=== PATIENT | female | born 1960 | race Caucasian/White ===

== ENCOUNTER 2020-08-09 12:51 | Observation (INO) | payer OTHER ==
[2020-08-09 12:57] VITALS: BMI 26.6
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
[2020-08-09 14:12] LABS: BASO % 1.1 % (0-2.0); EOS % 2.3 % (0-4.5); HEMATOCRIT 41.8 % (32.4-45.2); MCH 30.5 pg (25.7-33.7); MCHC 33.5 g/dl (32.0-36.0); MEAN CELL VOLUME 90.9 fl (80-96); MEAN PLT VOLUME 8.3 fl (7.5-11.1); MONO % 8.6 % (3.8-10.2); PLATELET COUNT 202 K/MM3 (134-434); RDW 13.4 % (11.6-15.6)
[2020-08-09 14:19] LABS: ALBUMIN 4.2 g/dl (3.4-5.0); BILIRUBIN,TOTAL 0.8 mg/dl (0.2-1); CALCIUM 9.1 mg/dl (8.5-10); CREATININE 0.7 mg/dl (0.55-1.3); POTASSIUM 4.2 mmol/L (3.5-5.1)
[2020-08-09] MEDS ORDERED: RABIES IMMUNE GLOBULIN 300 UNITS/1 ML VIAL ONE (15:06)
[2020-08-09] MEDS ORDERED: GlUCAGON HUMAN RECOMBINANT 1 MG/VIAL IVPUSH ONE (15:17)
[2020-08-09] MEDS ORDERED: GLUCAGON 1 MG KIT ONE (15:47)
[2020-08-09] MEDS ORDERED: RABIES VACCINE (PCEC)/PF 2.5 UNIT/VIAL IM ONE (16:26)
[2020-08-09] MEDS ORDERED: CALCIUM GLUCONATE 10% - 1,000 MG/10 ML VIAL IVPB ONE (16:43)
[2020-08-09] MEDS ORDERED: CALCIUM GLUCONATE 10% - 1,000 MG/10 ML VIAL ONE (16:45)
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
[2020-08-09] MEDS ORDERED: ACETAMINOPHEN 500 MG TABLET (FP) PO PRN (22:10)
[2020-08-09] MEDS: ACETAMINOPHEN 500 MG TABLET (FP) PO PRN (22:40)
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
[2020-08-10] MEDS ORDERED: HEPARIN NA (PORCINE) 5,000 UNITS/ML 1ML VIAL SQ SCH (06:00)
[2020-08-10 08:10] LABS: HEMOGLOBIN 13.5 GM/dL (10.7-15.3); MCH 29.5 pg (25.7-33.7); MCHC 32.9 g/dl (32.0-36.0); MEAN CELL VOLUME 89.8 fl (80-96); MEAN PLT VOLUME 8.7 fl (7.5-11.1); PLATELET COUNT 183 K/MM3 (134-434); RBC 4.57 M/mm3 (3.60-5.2); RDW 14.5 % (11.6-15.6); WHITE BLOOD COUNT 4.2 K/mm3 (4.0-10.0)
[2020-08-10 08:17] LABS: CALCIUM 8.8 mg/dL (8.5-10.1); CREATININE 0.8 mg/dL (0.55-1.3); MAGNESIUM 2.2 mg/dL (1.8-2.4)
[2020-08-10] MEDS ORDERED: GABAPENTIN 100 MG CAPSULE PO PRN (08:19)
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
[2020-08-10] MEDS: ENOXAPARIN NA (PORCINE) 40 MG/0.4 ML DISP.SYRIN SQ SCH (09:43)
[2020-08-10] MEDS: CHOLECALCIFEROL (VIT D3) 1,000 UNIT (25 MCG) TABLET PO SCH (09:46)
[2020-08-10] MEDS: ACETAMINOPHEN 500 MG TABLET (FP) PO PRN ×2 (09:46→22:16)
--- NOTE | 2020-08-10 13:20 | EKG ---
Test Reason : Blood Pressure : / mmHG Vent. Rate : 049 BPM Atrial Rate : 049 BPM P-R Int : 156 ms QRS Dur : 084 ms QT Int : 442 ms P-R-T Axes : 043 002 023 degrees QTc Int : 399 ms SINUS BRADYCARDIA OTHERWISE NORMAL ECG WHEN COMPARED WITH ECG OF 09-AUG-2020 14:13, NO SIGNIFICANT CHANGE WAS FOUND Confirmed by MD URENA GREGORY ([id number]) on 08/10/2020 1:20:31 PM [facility] Confirmed By:SIXTO URENA MD
--- NOTE | 2020-08-10 13:31 | EKG ---
Test Reason : Blood Pressure : / mmHG Vent. Rate : 041 BPM Atrial Rate : 041 BPM P-R Int : 156 ms QRS Dur : 090 ms QT Int : 476 ms P-R-T Axes : 068 012 033 degrees QTc Int : 392 ms MARKED SINUS BRADYCARDIA ABNORMAL ECG NO PREVIOUS ECGS AVAILABLE Confirmed by MD AYANNA, SIXTO ([id number]) on 08/10/2020 1:31:06 PM Referred By: SOFYA HADLEY Confirmed By:SIXTO URENA MD
[2020-08-10] MEDS ORDERED: GABAPENTIN 300 MG CAPSULE PO PRN (13:50)
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
--- NOTE | 2020-08-10 15:54 | ECHO ---
Version: 1 Name: KEVIN BRIONES Exam: Adult Echocardiogram Study Date: 08/10/2020, 1:48 PM Age: 60 Years MMode/2D Measurements & Calculations IVSd: 0.40 cm LVIDs: 2.7 cm LVIDd: 4.1 cm LVPWd: 1.02 cm LAV (MOD-bp): 46.0 ml LVOT diam: 1.79 cm Ao root diam: 3.0 cm Doppler Measurements & Calculations MV E max kael: 65.6 cm/sec Med E/e': 13.9 MV A max kael: 65.6 cm/sec Med Peak E' Kael: 4.7 cm/sec MV E/A: 1.00 Lat E/e': 6.6 Lat Peak E' Kael: 10.0 cm/sec Ao max P.8 mmHg Ao V2 max: 129.8 cm/sec TR max kael: 191.5 cm/sec TR max P.7 mmHg Procedure A two-dimensional transthoracic echocardiogram with color flow and Doppler was performed. The patien t was in normal sinus rhythm during the exam. Left Ventricle The left ventricle is normal in size. Left ventricular systolic function is normal. Ejection Fractio n = 65%. The transmitral spectral Doppler flow pattern is suggestive of impaired LV relaxation. Right Ventricle The right ventricle is normal size. The right ventricular systolic function is normal. Atria The left atrial size is normal. Right atrial size is normal. Mitral Valve The mitral valve is normal. There is trace mitral regurgitation. Tricuspid Valve The tricuspid valve is normal. There is mild tricuspid regurgitation. Right ventricular systolic pre ssure is normal. Aortic Valve The aortic valve is normal in structure and function. No aortic regurgitation is present. Pulmonic Valve The pulmonic valve leaflets are thin and pliable; valve motion is normal. There is no pulmonic valvu lar regurgitation. Great Vessels The aortic root is normal size. Mildly dilated ascending aorta. Pericardium/Pleura There is no pericardial effusion. Summary Statements Left ventricular systolic function is normal. The transmitral spectral Doppler flow pattern is suggestive of impaired LV relaxation. The right ventricular systolic function is normal. There is trace mitral regurgitation. There is mild tricuspid regurgitation. Mildly dilated ascending aorta. There is no pericardial effusion. MD Ki Luis 08/10/2020, 3:53 PM Ordering Physician: Mathew Mendoza Referring Physician: MATHEW MENDOZA Performed By: Elena Gonzales
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
[2020-08-10] MEDS ORDERED: POLYETHYLENE GLYCOL 3350 119 GM BTL PO ONE (20:11)
[2020-08-11 06:32] LABS: BASO % 1.2 % (0-2.0); EOS % 2.4 % (0-4.5); HEMATOCRIT 41.1 % (32.4-45.2); HEMOGLOBIN 13.5 GM/dL (10.7-15.3); LYMPH % 33.7 % (8-40); MCH 29.6 pg (25.7-33.7); MCHC 32.9 g/dl (32.0-36.0); MEAN PLT VOLUME 8.3 fl (7.5-11.1); MONO % 8.3 % (3.8-10.2); NEUT % 54.4 % (42.8-82.8); PLATELET COUNT 177 K/MM3 (134-434); RBC 4.56 M/mm3 (3.60-5.2); RDW 14.3 % (11.6-15.6); WHITE BLOOD COUNT 4.7 K/mm3 (4.0-10.0)
[2020-08-11 06:44] LABS: BLOOD UREA NITROGEN 15.7 mg/dL (7-18); CALCIUM 8.5 mg/dL (8.5-10.1); CREATININE 0.8 mg/dL (0.55-1.3)
[2020-08-11] MEDS ORDERED: DOCUSATE SODIUM 100 MG CAPSULE (FP) PO ONE (08:59)
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
[2020-08-11] MEDS: ACETAMINOPHEN 500 MG TABLET (FP) PO PRN (10:03)
[2020-08-11] MEDS: ENOXAPARIN NA (PORCINE) 40 MG/0.4 ML DISP.SYRIN SQ SCH (10:06)
[2020-08-11] MEDS: CHOLECALCIFEROL (VIT D3) 1,000 UNIT (25 MCG) TABLET PO SCH (10:06)
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
[2020-08-11 14:58] VITALS: BP 127/79; PULSE 57; TEMP 97.7
== END 2020-08-11 17:00 | disposition home or self-care (01) ==
LOC: FER 12:51 → J4S 21:00 → UNDOADMOB 21:00 → INTOOBSV 21:00 → J4S 08-10 10:13
PROVIDERS: ADMIT Internal Medicine Endocrinology, Diabetes & Metabolism; ATTEND Internal Medicine
DX: M54.9 Dorsalgia, unspecified (principal); R07.9 Chest pain, unspecified; R00.1 Bradycardia, unspecified; R51 Headache; R91.1 Solitary pulmonary nodule; R55 Syncope and collapse; G51.0 Bell's palsy; M21.612 Bunion of left foot; M21.611 Bunion of right foot; A69.20 Lyme disease, unspecified; Z91.030 Bee allergy status; Z87.828 Personal history of other (healed) physical injury and trauma
CPT/HCPCS: 36415; 70450-TC; 71045-TC-FY; 71275-TC; 74175-TC; 80048; 80053; 83735; 84484; 85025; 85027; 93005; 93010; 93306-TC; 97116-GP; 97161-GP; 99285-25; G0378; J1644; Q9967; U0003